=== PATIENT | female | born 1945 | race Caucasian/White ===

== ENCOUNTER 2018-02-15 19:04 | Outpatient (REF) | payer MEDICARE, OTHER, SELFPAY ==
[2018-02-15 21:27] LABS: Nucleated Cells 2 /MM3 (0-0)
== END 2018-02-15 19:24 ==
LOC: LBN 19:04
PROVIDERS: PCP Family Medicine; Visit Provider Podiatrist
DX: M67.471 Ganglion, right ankle and foot (principal)
CPT/HCPCS: 89051